=== PATIENT | female | born 1990 | race Caucasian/White ===

== ENCOUNTER 2023-12-31 08:04 | Outpatient (REF) | payer OTHER, SELFPAY ==
[2024-01-03 02:29] LABS: TS Negative Control Passed; TS Panel A 0; TS Panel B 1; TS Positive Control Passed; TSpotTB Negative (Negative)
== END 2023-12-31 08:05 | disposition home or self-care (01) ==
LOC: HO.HMGCLDS 08:04
PROVIDERS: PCP Family Medicine; Visit Provider Family Medicine
DX: Z11.7 Encounter for testing for latent tuberculosis infection (principal)
CPT/HCPCS: 36415; 86481